=== PATIENT | female | born 1955 | race Caucasian/White ===

== ENCOUNTER 2019-06-19 19:32 | Inpatient (IN) | payer MEDICARE, OTHER ==
[~2019-06-19] VITALS: Ht 157.5 cm; Wt 59.7 kg
[2019-06-22 09:06] VITALS: BP 149/73
== END 2019-06-22 14:08 | disposition home or self-care (01) | DRG 202 ==
LOC: ED 23:13 → EDIP 23:48 → 5SO 06-20 → DCLOUNGE 06-22 13:32
PROVIDERS: ADMIT Internal Medicine; ATTEND Internal Medicine
DX: J45.901 Unspecified asthma with (acute) exacerbation (principal); J18.9 Pneumonia, unspecified organism; E87.0 Hyperosmolality and hypernatremia; N20.0 Calculus of kidney; I10 Essential (primary) hypertension; E87.6 Hypokalemia; I70.0 Atherosclerosis of aorta; B00.9 Herpesviral infection, unspecified; R73.9 Hyperglycemia, unspecified; Z82.49 Family history of ischemic heart disease and other diseases of the circulatory system; Z90.710 Acquired absence of both cervix and uterus; Z82.3 Family history of stroke; Z88.1 Allergy status to other antibiotic agents; Z91.040 Latex allergy status; Z98.49 Cataract extraction status, unspecified eye
CPT/HCPCS: 36415; 71046; 71275; 78452; 80048; 80053; 80061; 82040; 83036; 83735; 84484; 85025; 85379; 87040; 87400; 93005; 93017; 93306; 94640; 99285; G0378; J1644; J3480; J7613; J7620; J7626; Q9967; A9502; J1200; J7040; J7512